=== PATIENT | male | born 1965 | race Caucasian/White ===

== ENCOUNTER 2018-03-18 13:09 | Day surgery (SDC) | payer OTHER ==
[~2018-03-18 13:09] MED LIST: Buffered Lidocaine 0.9% SYRIN* 5 ML/SYR SYRINGE INTRADERM ONE; Dexamethasone IV* 4 MG/ML 1 ML (4 MG) IV SLOW PU ONE; Dexamethasone IV* 4 MG/ML 1 ML (4 MG) ONE; Famotidine IV* 10 MG/ML 2 ML (20 mg) IV ONE; Famotidine IV* 10 MG/ML 2 ML (20 mg) ONE; Lactated Ringers 1000 ML Bag* 1,000 ML IV SCH
[2018-03-18] MEDS ORDERED: Propofol* 10 MG/ML 20 ML BTL ONE (14:37)
[2018-03-18] MEDS ORDERED: Midazolam* 1 MG/ML 2 ML VIAL (2 MG) ONE ×2 (14:37→16:25)
[2018-03-18] MEDS ORDERED: fentaNYL* 50 MCG/ML 2 ML VIAL (100 MCG VIAL) ONE ×3 (14:37→17:40)
[2018-03-18] MEDS ORDERED: Lidocaine 2% PF * 5 ML VIAL ONE (14:40)
[2018-03-18] MEDS ORDERED: Oxymetazoline 0.05% NASAL SPR* 15 ML BTL ONE (16:00)
[2018-03-18] MEDS ORDERED: Lidocaine 4% TOPICAL* 50 ML TOP.SOLN ONE (16:01)
[2018-03-18] MEDS ORDERED: hydrALAZINE IV* 20 MG/ML VIAL ONE (16:45)
[2018-03-18] MEDS ORDERED: Ondansetron INJ* 2 MG/ML VIAL ONE (16:46)
[2018-03-18] MEDS ORDERED: HYDROcodone/ACETAMIN 5-325 MG* 1 TAB PO PRN (17:10)
[2018-03-18] MEDS ORDERED: Naloxone* 0.4 MG/ML 1 ML VIAL IV PRN (17:10)
[2018-03-18] MEDS ORDERED: Acetaminophen TAB* 325 MG PO PRN (17:10)
[2018-03-18] MEDS ORDERED: DiMENhydriNATE IV* 50 MG/ML VIAL IV PUSH PRN (17:10)
[2018-03-18] MEDS ORDERED: Ibuprofen TAB* 600 MG PO PRN (17:10)
[2018-03-18] MEDS ORDERED: PROCHLORPERAZINE INJ 5 MG/ML 2 ML VIAL IV PRN (17:10)
[2018-03-18] MEDS ORDERED: hydrALAZINE IV* 20 MG/ML VIAL IV SLOW PU PRN (17:10)
[2018-03-18] MEDS: fentaNYL* 50 MCG/ML 2 ML VIAL (100 MCG VIAL) IV PRN ×2 (17:42→17:52)
[2018-03-18 18:29] VITALS: BP 132/87
--- NOTE | 2018-03-18 23:41 | OP ---
DATE OF OPERATION: 03/18/18 - SDS DATE OF : 63 SURGEON: Woo Davidson M.D. 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 OPERATIVE PROCEDURE: Microlaryngoscopy with injection of Prolaryn Gel into the left vocal cord under general endotracheal anesthesia. COMPLICATIONS: None. DISPOSITION: Good. SPECIMENS: None. INJECTIONS: 0.8 mL of Prolaryn Gel was injected. DESCRIPTION OF PROCEDURE: The patient was taken to the operating room, placed in the supine position on the operating room table. General anesthesia was induced. He was orotracheally intubated, turned, and draped for the surgery, and teeth guard was placed in the upper teeth. The laryngoscope was inserted and suspended with suspension system. Microscope was brought in. Cottonoids impregnated with oxymetazoline and 4% lidocaine was placed in his vocal cord and removed and then a Prolaryn Gel was injected in three locations, primarily posterior, a little bit less mid and a little bit less anterior into the left vocal cord just on the lateral aspect of it from medialization with a total of 0.8 mL of Prolaryn Gel. The laryngoscope was removed. The patient tolerated this well. No complications. Transferred to the recovery room in stable condition. [id number]/[facility] #: [id number] JAY
== END 2018-03-18 18:31 | disposition home or self-care (01) ==
LOC: OR 13:09
PROVIDERS: ATTEND Otolaryngology
DX: R49.0 Dysphonia (principal); J37.0 Chronic laryngitis; Z85.819 Personal history of malignant neoplasm of unspecified site of lip, oral cavity, and pharynx; K21.9 Gastro-esophageal reflux disease without esophagitis; I48.91 Unspecified atrial fibrillation; E78.5 Hyperlipidemia, unspecified; I10 Essential (primary) hypertension; E03.9 Hypothyroidism, unspecified; J45.909 Unspecified asthma, uncomplicated
CPT/HCPCS: A9270-GY; J0360; J1100; J2250; J2405; J2704; J3010; Q2026

== ENCOUNTER 2018-06-08 08:13 | Day surgery (SDC) | payer OTHER ==
[~2018-06-08 08:13] MED LIST changes: +Acetaminophen TAB* 325 MG PO ONE; -Buffered Lidocaine 0.9% SYRIN* 5 ML/SYR SYRINGE INTRADERM ONE; +Buffered Lidocaine 1% SYRIN* 1 ML/SYRINGE INTRADERM ONE; -Dexamethasone IV* 4 MG/ML 1 ML (4 MG) IV SLOW PU ONE; -Dexamethasone IV* 4 MG/ML 1 ML (4 MG) ONE; -Famotidine IV* 10 MG/ML 2 ML (20 mg) IV ONE; -Famotidine IV* 10 MG/ML 2 ML (20 mg) ONE; +Gabapentin CAP(*) 300 MG PO ONE; +Onabotulinimtoxina 100 UNITS* VIAL ONE
[2018-06-08] MEDS ORDERED: Gabapentin CAP(*) 300 MG ONE (08:56)
[2018-06-08] MEDS ORDERED: Buffered Lidocaine 1% SYRIN* 1 ML/SYRINGE INTRADERM ONE (08:56)
[2018-06-08] MEDS ORDERED: Acetaminophen TAB* 325 MG ONE (08:56)
[2018-06-08] MEDS ORDERED: Midazolam* 1 MG/ML 2 ML VIAL (2 MG) ONE ×2 (09:32→10:10)
[2018-06-08] MEDS ORDERED: fentaNYL* 50 MCG/ML 2 ML VIAL (100 MCG VIAL) ONE (09:32)
[2018-06-08] MEDS ORDERED: Triamcinolone Acetonide* 40 MG/ML 1 ML VIAL ONE ×2 (09:44→10:13)
[2018-06-08] MEDS ORDERED: Famotidine IV* 10 MG/ML 2 ML (20 mg) ONE (10:00)
[2018-06-08] MEDS ORDERED: Succinylcholine* 20 MG/ML 10 ML VIAL ONE (10:13)
[2018-06-08] MEDS ORDERED: Propofol* 10 MG/ML 20 ML BTL ONE (10:13)
[2018-06-08] MEDS ORDERED: Dexamethasone IV* 4 MG/ML 1 ML (4 MG) ONE (10:13)
[2018-06-08] MEDS ORDERED: Ondansetron INJ* 2 MG/ML VIAL ONE (10:13)
[2018-06-08] MEDS ORDERED: Lidocaine 4% TOPICAL* 50 ML TOP.SOLN ONE (10:15)
[2018-06-08] MEDS ORDERED: Cisatracurium* 2 MG/ML MDV 5 ML ONE (10:15)
[2018-06-08] MEDS ORDERED: EPHEDrine (Pressors)* 50 MG/ML VIAL ONE (10:23)
[2018-06-08] MEDS ORDERED: Esmolol* 10 MG/ML 10 ML (100 mg) ONE (10:29)
[2018-06-08] MEDS ORDERED: HYDROcodone/ACETAMIN 5-325 MG* 1 TAB PO PRN ×2 (10:31)
[2018-06-08] MEDS ORDERED: Naloxone* 0.4 MG/ML 1 ML VIAL IV PRN (10:31)
[2018-06-08] MEDS ORDERED: Ondansetron INJ* 2 MG/ML VIAL IV PRN (10:31)
[2018-06-08] MEDS ORDERED: fentaNYL* 50 MCG/ML 2 ML VIAL (100 MCG VIAL) IV PRN (10:31)
[2018-06-08] MEDS ORDERED: diPHENhydraMINE IV* 50 MG/ML 1 ml VIAL (BENADRYL) IV PRN (10:31)
[2018-06-08] MEDS ORDERED: DiMENhydriNATE IV* 50 MG/ML VIAL IV PUSH PRN (10:31)
[2018-06-08] MEDS ORDERED: PROCHLORPERAZINE INJ 5 MG/ML 2 ML VIAL IV PRN (10:31)
[2018-06-08] MEDS ORDERED: Levalbuterol 0.63MG/3ML NEB* UNIT OF USE INH PRN (10:31)
[2018-06-08] MEDS ORDERED: Neostigmine Methylsulfate* 1 MG/ML 10 ML VIAL (1 mg/ml) ONE (10:41)
[2018-06-08] MEDS ORDERED: Glycopyrrolate IV* 0.2 MG/ML 1 ML VIAL ONE (10:41)
[2018-06-08 12:13] VITALS: BP 126/85
--- NOTE | 2018-06-08 13:52 | OP ---
OPERATIVE REPORT: DATE OF OPERATION: 06/08/18 - SDS DATE OF : 63 SURGEON: Woo Davidson MD ANESTHESIOLOGIST: Cristóbal West MD ANESTHESIA: General endotracheal anesthesia. PRE-OP DIAGNOSIS: Chronic dysphonia with chronic laryngitis. POST-OP DIAGNOSIS: Chronic dysphonia with chronic laryngitis. OPERATIVE PROCEDURE: Microlaryngoscopy with vocal cord injection with Botox followed by Kenalog under general endotracheal anesthesia. COMPLICATIONS: None. DISPOSITION: Good. SPECIMEN: None. BLOOD LOSS: None. DESCRIPTION OF PROCEDURE: Patient was taken to the operating room, placed in a supine position on the operating table. General anesthesia was induced and he was orotracheally intubated, turned and draped for the surgery. A tooth guard was placed in his upper teeth. The laryngoscope was inserted and suspended from the suspension system and the microscope was brought in. I initially started with the Botox injection preloading a laryngeal injection needle, a transoral needle with the Botox and on each side, I injected 2.5 units. I inserted the needle into the vocal cord under direct visualization using the microscope, injected, put the second needle on and injected the other side. I then preloaded the injection needle and injected 0.5 mL of Kenalog 40 mg into each vocal cord bilaterally using the same technique. Cottonoids impregnated with oxymetazoline and 4% lidocaine was placed to anesthetize the vocal cords. The laryngoscope and tooth guard were released and removed. The patient tolerated this well. No complications. Transferred to the recovery room in stable condition. [id number]/[facility] #: [id number] MTDD
== END 2018-06-08 12:15 | disposition home or self-care (01) ==
LOC: OR 08:13
PROVIDERS: ATTEND Otolaryngology
DX: J38.5 Laryngeal spasm (principal); J37.0 Chronic laryngitis; R49.0 Dysphonia; I10 Essential (primary) hypertension; I34.0 Nonrheumatic mitral (valve) insufficiency; I48.91 Unspecified atrial fibrillation; J45.909 Unspecified asthma, uncomplicated; E03.9 Hypothyroidism, unspecified; K21.9 Gastro-esophageal reflux disease without esophagitis
CPT/HCPCS: A9270-GY; J0330; J0585; J1100; J2250; J2405; J2704; J2710; J3010; J3301

== ENCOUNTER 2018-09-30 07:36 | Day surgery (SDC) | payer OTHER ==
[~2018-09-30 07:36] MED LIST changes: -Acetaminophen TAB* 325 MG PO ONE; +Dexamethasone IV* 4 MG/ML 1 ML (4 MG) IV SLOW PU ONE; +Famotidine IV* 10 MG/ML 2 ML (20 mg) IV ONE; -Gabapentin CAP(*) 300 MG PO ONE; -Onabotulinimtoxina 100 UNITS* VIAL ONE
[2018-09-30] MEDS ORDERED: Famotidine IV* 10 MG/ML 2 ML (20 mg) ONE (07:49)
[2018-09-30] MEDS ORDERED: Dexamethasone IV* 4 MG/ML 1 ML (4 MG) ONE (07:49)
[2018-09-30] MEDS ORDERED: EPINEPHRINE 1 MG/ML 1 ML VIAL ONE (10:44)
[2018-09-30] MEDS ORDERED: Lidocaine 4% TOPICAL* 50 ML TOP.SOLN ONE ×2 (10:44→13:30)
[2018-09-30] MEDS ORDERED: Oxymetazoline 0.05% NASAL SPR* 15 ML BTL ONE (10:44)
[2018-09-30] MEDS ORDERED: Sugammadex * 200 MG/2 ML VIAL IV PUSH ONE (10:45)
[2018-09-30] MEDS ORDERED: Rocuronium* 10 MG/ML VIAL ONE (10:45)
[2018-09-30] MEDS ORDERED: Methylene Blue 0.5 %* 50 MG/10 ML AMP IV ONE (10:48)
[2018-09-30] MEDS ORDERED: fentaNYL* 50 MCG/ML 2 ML VIAL (100 MCG VIAL) ONE ×2 (10:55→12:10)
[2018-09-30] MEDS ORDERED: Midazolam* 1 MG/ML 2 ML VIAL (2 MG) ONE (10:56)
[2018-09-30] MEDS ORDERED: Ondansetron INJ* 2 MG/ML VIAL ONE (11:35)
[2018-09-30] MEDS ORDERED: Neostigmine Methylsulfate* 3 MG/3 ML SYRINGE ONE (11:36)
[2018-09-30] MEDS ORDERED: Glycopyrrolate IV* 0.2 MG/ML 1 ML VIAL ONE (11:36)
[2018-09-30] MEDS: fentaNYL* 50 MCG/ML 2 ML VIAL (100 MCG VIAL) IV PRN ×2 (11:55→12:38)
[2018-09-30] MEDS ORDERED: DiMENhydriNATE IV* 50 MG/ML VIAL IV PUSH PRN (12:07)
[2018-09-30] MEDS ORDERED: HYDROmorphone INJ1* 1 MG/ML SYRINGE IV PRN (12:07)
[2018-09-30] MEDS ORDERED: Naloxone* 0.4 MG/ML 1 ML VIAL IV PRN (12:07)
[2018-09-30] MEDS ORDERED: HYDROmorphone INJ1* 1 MG/ML SYRINGE ONE (12:10)
[2018-09-30] MEDS ORDERED: Lorazepam PYXIS KEY ONE (12:19)
[2018-09-30] MEDS ORDERED: LORazepam INJ* 2 MG/ML 1 ML VIAL ONE (12:20)
--- NOTE | 2018-09-30 13:51 | OP ---
DATE OF OPERATION: 09/30/18 - SDS DATE OF : 63 SURGEON: Woo Davidson MD. 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 OPERATIVE PROCEDURE: Microlaryngoscopy with CO2 laser ablation, some vocal cord leukoplakia, and then bilateral DONTE Voice implant injection under general endotracheal anesthesia. COMPLICATIONS: None. DISPOSITION: Good. SPECIMEN: None. BLOOD LOSS: None. DESCRIPTION OF PROCEDURE: The patient was taken to the operating room, placed in the supine position on the operating room table, general anesthesia was induced, and he was orotracheally intubated with a laser safe tube. Wet eye pads and wraps were used during the procedure around his face and oxygen was turned down low using laser safe protocol. He was turned and draped for the surgery. A tooth guard was placed on his upper teeth and the laryngoscope was inserted and suspended from the suspension system. Microscope was brought in. He had diffuse friable leukoplakia of his vocal cords bilaterally. Using the CO2 laser at a setting of 2 with the OmniGuide fiber, noncontact and defocused, I ablated these areas to get superficial blanching. Once this was done, DONTE Gel implant was injected bilaterally, 0.3 mL bilaterally, into the mid posterior lateral vocal cords to give just a little bit of medialization. The Ted-Fernandez mouth gag was released and removed. The patient tolerated the procedure well, no complications, transferred to the recovery room in stable condition. [id number]/[facility] #: [id number] [facility]
[2018-09-30] MEDS ORDERED: Labetalol IV* 5 MG/ML 20 ML VIAL ONE (14:16)
[2018-09-30 14:35] VITALS: BP 140/97
== END 2018-09-30 15:00 | disposition home or self-care (01) ==
LOC: OR 07:36
PROVIDERS: ATTEND Otolaryngology
DX: J38.3 Other diseases of vocal cords (principal); J37.0 Chronic laryngitis; R49.8 Other voice and resonance disorders; I10 Essential (primary) hypertension; J45.909 Unspecified asthma, uncomplicated; K21.9 Gastro-esophageal reflux disease without esophagitis; E03.9 Hypothyroidism, unspecified; Z79.01 Long term (current) use of anticoagulants; Z85.818 Personal history of malignant neoplasm of other sites of lip, oral cavity, and pharynx; Z86.73 Personal history of transient ischemic attack (TIA), and cerebral infarction without residual deficits
CPT/HCPCS: A9270-GY; C1878; J1100; J1170; J2060; J2250; J2405; J2710; J3010

== ENCOUNTER 2019-03-18 07:04 | Emergency (ER) | payer OTHER ==
--- OUTSIDE RECORDS SUMMARY | 2019-03-18 07:13 | XMS REPORT | Continuity of Care Document ---
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 [phone] Problems Active Problems Provider Date Benign neoplasm of colon Luis Vieira DO Onset: 06/03/2010 Peptic reflux disease Luis Vieira DO Onset: 06/03/2010 Dysphagia Luis Vieira DO Onset: 06/03/2010 Gastroesophageal reflux disease Luis Vieira DO Onset: 11/04/2015 Social History Type Date Description Comments Sex Unknown ETOH Use Occasionally consumes beer ETOH Use Occasionally consumes liquor ETOH Use Occasionally consumes wine Tobacco Use Start: Unknown Patient has never smoked Recreational Drug Use Denies Drug Use Smoking Status Reviewed: 02/21/19 Patient has never smoked Allergies, Adverse Reactions, Alerts Description No Known Drug Allergies Medications Active Medications SIG Qnty Indications Ordering Date Provider Pantoprazole Sodium 1 by mouth bid 60tabs Luis Vieira DO 02/21/[address] Carolinaotidtelma 1 by mouth QHS as 30tabs Luis Vieira DO 02/21/2019 40mg Tablets needed for heartburn Levothyroxine Sodium 1 by mouth every Cristóbal Chowdhury, day 150mcg Tablets Montelukast Sodium 1 by mouth every Cristóbal Chowdhury, 10mg day Tablets Metoprolol Succinate 1 by mouth every Unknown ER day 50mg Tablets ER 24HR Testosterone Cypionate as Directed Unknown 200mg/ml Solution Pradaxa 1 by mouth twice Unknown 150mg Capsules a day Atorvastatin Calcium 1 by mouth every 90tabs Jonny Cabral, 40mg day MD Tablets Loratadine 1 by mouth every 30tabs Unknown 10mg Tablets day History Medications Lansoprazole take 1 capsule by 90caps Luis Vieira DO 10/13/2018 - 30mg Capsules mouth once daily 02/12/2019 DR Caal Description No Information Available Vital Signs Date Vital Result Comment 02/21/2019 8:34am BP Systolic 127 mmHg BP Diastolic 86 mmHg Heart Rate 70 /min Height 74 inches 6'2" Weight 210.00 lb BMI (Body Mass Index) 27.0 kg/m2 Body Temperature 97.1 F 02/22/2018 10:43am BP Systolic 91 mmHg BP Diastolic 61 mmHg Heart Rate 93 /min Height 74 inches 6'2" Weight 223.00 lb BMI (Body Mass Index) 28.6 kg/m2 Body Temperature 96.5 F Results Description No Information Available Procedures Description No Information Available Medical Devices Description No Information Available Encounters Type Date Location Provider Dx Diagnosis Office Visit 02/21/2019 [place] [address] Office Luis Vieira DO K21.9 Gastro- esophageal 8:15a reflux disease without esophagitis R13.10 Dysphagia, unspecified Assessments Date Code Description Provider 02/21/2019 K21.9 Gastro-esophageal reflux disease without Luis Vieira DO esophagitis 02/21/2019 R13.10 Dysphagia, unspecified Luis Vieira DO Plan of Treatment Future Appointment(s):09/04/2019 1:15 pm - Luis Vieira DO at [place] [address] Office Functional Status Description No Information Available Mental Status Description No Information Available Referrals Description No Information Available
--- OUTSIDE RECORDS SUMMARY | 2019-03-18 07:13 | XMS REPORT | Summary of Care ---
:1965 Author Organization [facility] Address [address] [place] [address] Care Team Providers Name Role Phone Cristóbal Chowdhury MD Primary Care Provider Reason for Visit Reason Comments Follow-up Encounter Details Date Type Department Care Team Description 02/14/2019 Office Visit Boaz Johnson Chronic hoarseness ( Primary Dx); Otolaryngology MD Yves Lesion of true vocal cord; [facility] at [address] Chronic laryngitis [place], [place] [address] [address] [address] [phone] [place] [id number] Allergies No Known Allergiesdocumented as of this encounter (statuses as of 02/14/2019) Medications Medication Sig Dispensed Refills Start Date End Date Status montelukast Take 10 mg by 0 05/24/2014 Active (SINGULAIR) 10 MG mouth nightly tablet levothyroxine Take 150 mcg by 0 05/30/2014 Active (SYNTHROID, mouth daily LEVOTHROID) 150 MCG tablet atorvastatin (LIPITOR) Take 1 tablet 30 tablet 5 08/02/2016 Active 40 MG tablet by mouth daily testosterone cypionate Inject 200 mg 0 Active (DEPO-TESTOSTERONE) into the muscle 200 MG/ML injection every 21 (twenty-one) days PRADAXA 150 MG CAPS take 1 capsule 0 08/11/2017 Active by mouth twice a day loratadine (CLARITIN) 0 08/09/2017 Active 10 MG tablet ranitidine (ZANTAC) 0 08/18/2017 Active 150 MG tablet omeprazole (PRILOSEC) 0 08/09/2017 Active 40 MG capsule metoprolol (LOPRESSOR) Take 50 mg by 0 11/24/2018 Active 50 MG tablet mouth Two Times Daily amlodipine (NORVASC) 5 0 08/03/2018 Active MG tablet pantoprazole Take 1 tablet 180 tablet 3 12/08/2018 12/07/2019 Active (PROTONIX) 40 MG by mouth Two tablet times daily before meals vardenafil (LEVITRA) Take 10 mg by 0 Active 10 MG tablet mouth predniSONE (DELTASONE) Take by mouth 0 01/04/2019 Active 5 MG tablet daily documented as of this encounter (statuses as of 02/14/2019) Active Problems Problem Noted Date Cervical stenosis of spinal canal 09/06/2017 Neural foraminal stenosis of cervical spine 09/06/2017 DDD (degenerative disc disease), cervical 09/06/2017 Cervical radiculopathy 09/06/2017 Cerebrovascular accident (CVA) due to embolism of left middle cerebral 2016 artery Carotid occlusion, bilateral 09/29/2016 Acute ischemic stroke 07/31/2016 Hypothyroidism 07/31/2016 Atrial fibrillation 07/31/2016 GERD (gastroesophageal reflux disease) 07/31/2016 bilateral ICAO (internal carotid artery occlusion) 07/31/2016 Overview: Occlusion vs agenesis Cervical spondylosis 05/31/2014 documented as of this encounter (statuses as of 02/14/2019) Social History Tobacco Use Types Packs/Day Years Used Date Never Smoker Smokeless Tobacco: Never Used Alcohol Use Drinks/Week oz/Week Comments Yes less than 10/week Sex Assigned at Date Recorded Not on file Job Start Date Occupation Industry Not on file Not on file Not on file Travel History Travel Start Travel End No recent travel history available. 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 ACDF level C4-7 with neuro-monitoring done. Feels singing voice was affected. Never called here forf/u On any blood thinners: yes. pradaxa On reflux medications: Yes, PPI Smoking no 12/01: here for voice. Was a patient of Dr Davidson: 2009 MDL KTP of leukoplakia; 2012: [employer] [place] 2 laser of polyp. Narrow scope used. Has had problems with singing voice since (last year). Has seen Dr Davidson for this. Has tried vocal cord injections: GEL left Gel then kenalog/BOTOX bilateral, then DONTE bilateral On PO steroids voice better. Was on prednisone 50 mg/day. Then tapered. 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 Goes to [place]. In ear monitors. 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 In 04/03 will go to [place]. 3- 4 days on, 3-4 off. Will be 4th season PPI in AM R qHS Mylanta/tums qHS Sees GI. EGD last 5 years. Try diflucan, stop inhaled steroid. Get old strobes. Switch PPI to BID and continue R 01/12/19: better but not stamina it once had. Last time 100%: over 2 years ago except when on prednisone 04/02. Last "50%", today 60%: better range, inflection , clarity. Taking 5 mg prednisone qD for 5 days without help. Did not get strobes TODAY: no strobes or videos. Off steroids. Feels voice is no good. Did not get tour in 04/03. Can't sing "Happy Birthday" and depressing The patients PMH, PSH, ROS, ALL, Meds, SH, FH are all updated and noted in the EMR. Has had 2 MDL excision lesions (benign-last many years ago). 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 Face inspected and no deformity, lesions noted. Conjunctiva are clear. Extraocular movements are intact. Cranial nerves tested and intact. Neck is supple, no adenopathy, no thyroid masses, no salivary gland enlargement. Good mobility side to side Intraoral exam, no lesions of the tongue, palate, floor of mouth, buccal surface. Sinuses non tender. Anterior nose, septum intact, no perforations, no obvious intranasal polyps. Ear canals are patent. TMs intact, no fluid. TMJs negative. It was decided today that based on sxs, a stroboscopic exam is needed today to evaluate the vocal folds: Stroboscopic exam was performed using a Olympus stroboscopy unit and iMAC monitor with flexible (attempted rigid but +GAG) scope. Amplitude of vibration , degree of vibration of each vocal fold, vocalfold edges and degree/type of glottic closure was assessed: ABD/ADD: intact. Right FVC thinned and VC shortened and ?higher than left Closure: not complete Right edge: mild irregular, whitish mid thickening (CAHA) Left edge: mild irregular Vibration R (reduced %) Vibration L (100 %) + mucus +inflamation NOT MUCH CHANGE. C/w 2018: much worse closure, right vibration A/P: This is a 54 yo patient with past XRT and mucus, LPR, stiff RVC and irregular closure. RTC 4 month Consider MDL, ?possible removal of CAHA verus waiting it out. May need left filler documented in this encounter Plan of Treatment Date Type Specialty Care Team Description 06/20/2019 Office Visit Otolaryngology Boaz Durant MD [address] [place] [address] [phone] Health Maintenance Due Date Last Done Comments MMR Vaccines (1 of 1 - Standard [birth year]10/1965 series) DTaP,Tdap,and Td Vaccines (1 - 01/10/1971 Tdap) HIV Screening 01/10/1977 Colon Cancer Screening 10 yrs 01/10/2014 Influenza Vaccine 12/13/2018 Pneumococcal Vaccine: 65+ Years (1 01/10/2029 of 2 - PCV13) Hepatitis C Screening (B. Completed 08/01/[id number]) HIB Vaccines Aged Out No longer eligible based on patient's age to complete this topic Hepatitis A Vaccines Aged Out No longer eligible based on patient's age to complete this topic Hepatitis B Vaccines Aged Out No longer eligible based on patient's age to complete this topic IPV Vaccines Aged Out No longer eligible based on patient's age to complete this topic Pneumococcal Vaccine: Pediatrics Aged Out No longer eligible based on (0 to 5 Years) and At-Risk patient's age to complete Patients (6 to 64 Years) this topic Varicella Vaccines Aged Out No longer eligible based on patient's age to complete this topic documented as of this encounter Results Not on filedocumented in this encounter Visit Diagnoses Diagnosis Chronic hoarseness - Primary Dysphonia Lesion of true vocal cord Other diseases of vocal cords Chronic laryngitis documented in this encounter
--- OUTSIDE RECORDS SUMMARY | 2019-03-18 07:13 | XMS REPORT | Continuity of Care Document ---
:1965 External Reference #:[id number] Author Name Cristóbal Chowdhury MD Address [address] [address] Care Team Providers Name Role Phone Cristóbal Chowdhury MD - Family Medicine Care Team Information Studio Grip Jonny Cabral MD - Cardiovascular Care Team Information [facility] Disease Luis Jacobsen MD - Pain Medicine Care Team Information Studio Grip Luis Vieira MD - Gastroenterology Care Team Information Studio Grip Bossman Grant MD - Neurological Surgery Care Team Information Studio Grip [phone] Braden Munoz MD - Overnight Cashier Care Team Information Studio Grip Problems Active Problems Provider Date Hypothyroidism Lashanda Johnson MD Onset: 10/03/2007 Acute bronchitis Lashanda Johnson MD Onset: 10/03/2007 Atrial fibrillation Jonny Cabral MD Onset: 02/11/2011 Palpitations Jonny Cabral MD Onset: 02/11/2011 Mitral valve disorder Jonny Cabral MD Onset: 02/25/2011 Electrocardiogram abnormal Jonny Cabral MD Onset: 07/21/2011 Allergic asthma without status asthmaticus Jonny Cabral MD Onset: 2012 Antiplatelet agent Jonny Cabral MD Onset: 03/11/2015 Paroxysmal atrial fibrillation Jonny Cabral MD Onset: 09/19/2015 Edema Jonny Cabral MD Onset: 03/05/2016 Dizziness and giddiness Jonny Cabral MD Onset: 07/04/2016 Cerebral artery occlusion Jonny Cabral MD Onset: 02/17/2017 Long-term current use of anticoagulant Jonny Cabral MD Onset: 02/17/2017 Chest pain Jonny Cabral MD Onset: 02/17/2017 Disorder of pericardium Jonny Cabral MD Onset: 02/17/2017 Essential hypertension Jonny Cabral MD Onset: 08/27/2017 Pure hypercholesterolemia Jonny Cabral MD Onset: 09/29/2017 Orthostatic hypotension Jonny Cabral MD Onset: 09/29/2017 Low blood pressure Jonny Cabral MD Onset: 12/15/2017 Hypertensive heart disease without heart failure Jonny Cabral MD Onset: 05/2017 Preoperative cardiovascular examination Jonny Cabral MD Onset: 06/02/2018 Testicular hypofunction Jonny Cabral MD Onset: 06/02/2018 Unspecified sexual dysfunction not due to a Jonny Cabral MD Onset: 2018 substance or known physiological condition Drug-induced hypotension Jonny Cabral MD Onset: 09/02/2018 Uncomplicated moderate persistent asthma Cristóbal Chowdhury MD Onset: 09/27/2018 Social History Type Date Description Comments Sex Unknown Tobacco Use Start: Unknown Never Smoked Cigarettes ETOH Use Occasionally consumes alcohol Recreational Drug Use Never Used Drugs Tobacco Use Start: Unknown Patient has never smoked Smoking Status Reviewed: 01/04/19 Patient has never smoked Allergies, Adverse Reactions, Alerts Description No Known Drug Allergies Medications Active Medications SIG Qnty Indications Ordering Date Provider Prednisone 1 PO qd 90tabs R49.0 Cristóbal Chowdhury, 01/04/2019 5mg MD Tablets Amlodipine Besylate 1 by mouth every day 30tabs Selvin, 09/02/2018 MD Alfie 2.5mg Tablets Prednisone 5 tablets everyday 25tabs J20.9 [place], 05/23/2018 10mg in the in the Sammie, [employer] Tablets morning x 5 days Ipratropium 1 vial inhaled via 360ml [place], 05/23/2018 Alpine/Albuterol nebulizer every q4-6 Sammie, [employer] Sulfate hours as needed for shortness of 0.5-2.5(3)mg/3ML breath/wheezing Solution Metoprolol Tartrate take one tab by 60tabs I10 Selvin, 05/23/2018 mouth twice a day MD Alfie 50mg Tablets Testosterone inject 3ml 12ml E29.1 Cristóbal Chowdhury, 08/20/2017 Cypionate intramuscular every MD 200mg/ml 4 weeks. code f Solution Albuterol Sulfate 1 dose by via 75units J45.20 Cristóbal Chowdhury, 06/07/2017 nebulizer every 4-6 1.25mg/3ML Nebulizer hours as needed for sob or wheezing Omeprazole 1 by mouth every day 90caps [place], 02/26/2017 40mg in the evening RACHEAL Cochran Capsules DR Loratadine 1 by mouth every day J30.9 Unknown 02/09/2017 10mg Tablets Montelukast Sodium one by mouth every 30tabs J45.30 [place], 01/15/2017 day at bedtime. new RACHEAL Cochran 10mg Tablets insurance started today Levothyroxine Sodium 1 by mouth every 90tabs E03.9 Cristóbal Chowdhury, 2016 day. 150mcg Tablets Atorvastatin Calcium 1 by mouth every day 90tabs E78.00 Jonny Cabral, 40mg Tablets Pradaxa take one capsule by 60caps I48.0 Cristóbal Chowdhury, 08/01/2016 150mg mouth twice a day MD Capsules Sumatriptan 1 by mouth stat for 60tabs G43.109 [place], 07/28/2016 Succinate migraine symptoms RACHEAL Cochran 100mg may repeat after 2 Tablets hours. please note change in dose. Approve through 07/2017. Levitra 1/2-1 by mouth as 30tabs Cristóbal Chowdhury, 11/12/2015 20mg Tablets needed take 15 MD minutes prior to sexual activity Antacid Plus 30ml po qhs Unknown Anti-Gas Relief Maximum Strength [id number] Suspension Ranitidine HCL 1 by mouth qhs K21.9 Unknown 150mg Capsules Tylenol 1 q6 hours as needed Unknown 325mg pain Capsules Medications Administered in Office Medication SIG Qnty Indications Ordering Provider Date Albuterol Up To 2.5mg & Cristóbal Chowdhury MD 12/13/2017 Ipatropium Alpine Up To 0.5mg Non-Compd Injection Depo Medrol 80 MG Cristóbal Chowdhury MD 08/20/2017 Injection Depo Medrol 40 MG Cristóbal Chowdhury MD 08/20/2017 Injection Injection, testosterone Nurse Schedule Loc 8 05/04/2016 cypionate, 1mg Injection PPD Cristóbal Chowdhury MD 09/09/2012 Injection Immunizations CPT Code Status Date Vaccine Lot # [id number] Given 11/24/2018 Tdap (Adacel) Ages 7 And Above Only [id number] 92305 Given 11/24/2018 Influenza Vac, Quadrivalent, Split, 0.5mL Dosage, [id number] Im Use 35451 Given 11/25/2017 Influenza Vac, Quadrivalent, Split, 0.5mL Dosage, [id number] Im Use 19461 Given 10/28/2016 Influenza Vac, Quadrivalent, Split, 0.5mL Dosage, [id number] Im Use 04545 Given 11/12/2015 Influenza Vac, Quadrivalent, Split, 0.5mL Dosage, [id number] Im Use 16157 Given 12/19/2014 Influenza Vac, Quadrivalent, Split, 0.5mL Dosage, [id number] Im Use Q2038 Given 02/19/2014 Fluzone Trivalent Immunization [id number] Q2038 Given 12/22/2011 Fluzone Trivalent Immunization [id number] Q2038 Given 01/12/2011 Fluzone Trivalent Immunization [id number] 64070 Given 01/08/2010 Afluria Or Fluvirin Flu Vac Intramuscular [id number] 76969 Given 01/15/2009 Influenza Virus Vaccine Pandemic Formulation - [id number] 38267 Given 01/15/2009 Administration Swine Flu Vaccine [id number] 04325 Given 12/21/2008 Afluria Or Fluvirin Flu Vac Intramuscular [id number] 28128 Given 09/10/2008 Hepatitis B Vaccine Adult Dosage 55194 Given 09/10/2008 Hepatitis B Vaccine Adult Dosage 01739 Given 06/23/2008 Hepatitis B Vaccine Adult Dosage 44327 Given 06/23/2008 Tdap (Adacel) Ages 7 And Above Only 72981 Given 01/02/2008 Afluria Or Fluvirin Flu Vac Intramuscular [id number] Vital Signs Date Vital Result Comment 01/04/2019 4:02pm Body Temperature 97.5 F Weight 208.00 lb Heart Rate 96 /min BP Systolic 176 mmHg gets white coat BP Diastolic 110 mmHg gets white coat BP Systolic Recheck 128 mmHg BP Diastolic Recheck 68 mmHg Respiratory Rate 16 /min Height 72 inches 6'0" O2 % BldC Oximetry 95 % BMI (Body Mass Index) 28.2 kg/m2 Urine Dipstick - Blood neg Urine Dipstick - Protein neg ketones pos Urine Dipstick - Glucose neg Urine Dipstick - Leukocytes neg 11/24/2018 2:12pm Body Temperature 97.8 F Weight 218.00 lb Heart Rate 78 /min BP Systolic 142 mmHg BP Diastolic 80 mmHg Respiratory Rate 17 /min Height 73 inches 6'1" O2 % BldC Oximetry 98 % BMI (Body Mass Index) 28.8 kg/m2 Results Test Acquired Date Facility Test Result H/L Range Note Testosterone,F 02/01/2019 [facility] Testosterone Total 109 ng/dL Low 285- 950 ree & Adult Male Total-Male Sex Hormone Binding Globulin 24.2 nmol/L 13.3-89.5 Testosterone Free Adult Male 24 pg/mL Low 50-247 Testosterone Percent Free 2.2 % 1.8-3.2 Comprehensive Met Panel-[facility] 01/04/2019 [facility] Sodium 140 mmol/L 135- 146 1 Potassium 4.2 mmol/L 3.5-5.2 Chloride# 102 mmol/L 97-110 2 Carbon Dioxide 32 mmol/L 24-34 Calcium 9.0 mg/dL 8.5-10.5 3 Glucose 93 mg/dL 70-105 BUN 14 mg/dL 6-26 Creatinine 1.0 mg/dL 0.5-1.4 Total Protein 5.7 g/dL Low 6.0-8.0 Albumin 4.0 g/dL 3.6-4.9 Globulin 1.7 g/dL Low 2.0-3.5 A/G Ratio 2.4 Ratio High 1.0-2.2 Total Bilirubin 0.7 mg/dL 0.1-1.3 Alkaline Phosphatase 38 U/L 24-140 Alt 31 U/L 3-42 Ast 23 U/L 8-42 Anion Gap 6 mmol/L 5-15 4 Female Egfr 60 Low >60 5 Male Egfr 80 >60 6 CBC with Auto Diff-fcmg 01/04/2019 [facility] WBC 6.8 K/uL 4.1-11.0 RBC 5.18 M/uL 4.60-6.10 Hemoglobin 16.4 gm/dL 13.5-18.0 Hematocrit 48.4 % 41.0-53.0 MCV 93.4 fL 80.0-97.0 MCH 31.6 pg 27.0-32.0 MCHC 33.9 g/dL 32.0-36.0 RDW 13.2 % 11.5-14.5 PLT Count 233 K/ul 140-400 MPV 8.3 FL 7.1-10.7 Neutrophil 67.4 % 35.0-75.0 Lymphocyte 19.3 % 16.0-52.0 Monocyte 11.0 % High 2.0-10.0 Eosinophil 1.8 % 0.0-5.0 Basophil 0.5 % 0.0-4.0 Abs Neutrophils 4.6 K/uL 2.1-8.0 Abs Lymphocytes 1.3 K/uL 0.8-5.5 Abs Monocytes 0.7 K/uL 0.1-1.0 Abs Eosinophils 0.1 K/uL 0.0-0.5 Abs Basophils 0.0 K/uL 0.0-0.3 Laboratory test finding 01/04/2019 [facility] TSH 1.78 uIU/mL 0.35-4.94 Lipid 01/04/2019 [facility] Cholesterol 120 mg/dL 50-199 Triglycerides 87 mg/dL 30-200 HDL 32 mg/dL 29-71 7 Chol/ HDL Ratio 3.8 ratio Low 4.0-6.7 VLDL 17 mg/dL 2-29 LDL (Calc) 71 mg/dL 20-99 8 Laboratory test finding 01/04/2019 [facility] PSA 1.390 ng/mL 0.000-4.000 9 Total Testosterone Adult Male >1600 ng/dL High 285-950 CBC with Auto Diff-fcmg 09/27/2018 [facility] WBC 7.1 K/uL 4.1-11.0 RBC 5.76 M/uL 4.60-6.10 Hemoglobin 17.1 gm/dL 13.5-18.0 Hematocrit 50.9 % 41.0-53.0 MCV 88.3 fL 80.0-97.0 MCH 29.6 pg 27.0-32.0 MCHC 33.5 g/dL 32.0-36.0 RDW 13.9 % 11.5-14.5 PLT Count 204 K/ul 140-400 MPV 8.5 FL 7.1-10.7 Neutrophil 71.6 % 35.0-75.0 Lymphocyte 16.2 % 16.0-52.0 Monocyte 9.6 % 2.0-10.0 Eosinophil 2.0 % 0.0-5.0 Basophil 0.6 % 0.0-4.0 Abs Neutrophils 5.1 K/uL 2.1-8.0 Abs Lymphocytes 1.2 K/uL 0.8-5.5 Abs Monocytes 0.7 K/uL 0.1-1.0 Abs Eosinophils 0.1 K/uL 0.0-0.5 Abs Basophils 0.0 K/uL 0.0-0.3 Basic (BMP) 09/27/2018 [facility] Sodium 141 mmol/L 135-146 10 Potassium 4.0 mmol/L 3.5-5.2 Chloride# 103 mmol/L 97-110 11 Carbon Dioxide 27 mmol/L 24-34 Glucose 83 mg/dL 70-105 BUN 21 mg/dL 6- Creatinine 1.2 mg/dL 0.5-1.4 Calcium 9.5 mg/dL 8.5-10.5 12 Female Egfr 51 Low >60 13 Male Egfr 68 >60 14 Anion Gap 11 mmol/L 5-15 15 Laboratory test finding 09/27/2018 [facility] TSH 2.01 uIU/mL 0.35-4.94 1 Updated reference range on new analyzer 2 Updated reference range on new analyzer 3 Updated reference range 07-13-2018 4 Updated Reference Range 5 Concerning GFR Guidelines for Americans: Normal function or mild renal disease, if clinically at risk: >/= 60 mL/min Moderately decreased: 30-59 Severely decreased: 15-29 Renal failure: <15 There is reduced accuracy above 60ml/min/1.73 m squared, but the numeric value may be clinically useful in the near 60 range 6 Concerning GFR Guidelines: Normal function or mild renal disease, if clinically at risk: >/= 60 mL/min Moderately decreased: 30-59 Severely decreased: 15-29 Renal failure: <15 There is reduced accuracy above 60ml/min/1.73 m squared, but the numeric value may be clinically useful in the near 60 range Glomerular Filtration Rate (GFR) is estimated based on the CKD-EPI equation, which assumes a steady state for creatinine as recommended by the National Kidney Disease Education Program in conjunction with the National Institutes of Health and the National Kidney Foundation. Clinical conditions in which it may be necessary to measure GFR by using clearance methods include extremes of age and body size, severe malnutrition or obesity, diseases of skeletal muscle, paraplegia or quadriplegia, vegetarian diet, rapidly changing kidney function, and calculation of the dose of potentially toxic drugs that are excreted by the kidneys. 7 Per NCEP ATP III Guidelines: Results lower than 40 mg/dL are suggestive of increased risk for coronary artery disease. Results > or = to 60 mg/dL are considered a negative risk factor. 8 Per NCEP ATP III Guidelines: Normal Population <130 Patients with medical conditions: CHD/DM Optimal: <100 Borderline high: 130-159 High: 160-189 Very high: >189 9 Beginning 05/10/06 PSA values assayed at [facility] uses chemiluminescence methodology manufactured by [employer] for use on the DXI analyzer. Values obtained with different assay methods or kits can not be used interchangeably. Serum PSA measurement is not an absolute test for malignancy. The PSA value should be used in conjunction with information available from clinical evaluation and other diagnostic procedures. 10 Updated reference range on new analyzer 11 Updated reference range on new analyzer 12 Updated reference range 07-13-2018 13 Concerning GFR Guidelines for Americans: Normal function or mild renal disease, if clinically at risk: >/= 60 mL/min Moderately decreased: 30-59 Severely decreased: 15-29 Renal failure: <15 There is reduced accuracy above 60ml/min/1.73 m squared, but the numeric value may be clinically useful in the near 60 range 14 Concerning GFR Guidelines: Normal function or mild renal disease, if clinically at risk: >/= 60 mL/min Moderately decreased: 30-59 Severely decreased: 15-29 Renal failure: <15 There is reduced accuracy above 60ml/min/1.73 m squared, but the numeric value may be clinically useful in the near 60 range Glomerular Filtration Rate (GFR) is estimated based on the CKD-EPI equation, which assumes a steady state for creatinine as recommended by the National Kidney Disease Education Program in conjunction with the National Institutes of Health and the National Kidney Foundation. Clinical conditions in which it may be necessary to measure GFR by using clearance methods include extremes of age and body size, severe malnutrition or obesity, diseases of skeletal muscle, paraplegia or quadriplegia, vegetarian diet, rapidly changing kidney function, and calculation of the dose of potentially toxic drugs that are excreted by the kidneys. 15 Updated Reference Range Procedures Date Code Description Status 12/28/2018 33143 Admin Of Inj (Therapeutic Phrophylactic Or Diagnostic Completed Subq Inj 11/28/2018 07005 Admin Of Inj (Therapeutic Phrophylactic Or Diagnostic Completed Subq Inj 10/28/2018 55785 Admin Of Inj (Therapeutic Phrophylactic Or Diagnostic Completed Subq Inj 09/27/2018 54535 Admin Of Inj (Therapeutic Phrophylactic Or Diagnostic Completed Subq Inj 05/08/2014 11074645 Colonoscopy Completed Medical Devices Description No Information Available Encounters Type Date Location Provider Dx Diagnosis Office Visit 01/04/2019 4:00p Cristóbal Michaud MD R49.0 Dysphonia E29.1 Testicular hypofunction E03.9 Hypothyroidism, unspecified Z00.00 Encntr for general adult medical exam w/o abnormal findings I48.0 Paroxysmal atrial fibrillation I10 Essential (primary) hypertension Z13.31 Encounter for screening for depression M77.10 Lateral epicondylitis, unspecified elbow Z13.29 Encounter for screening for oth suspected endocrine disorder I65.21 Occlusion and stenosis of RIGHT carotid artery Z68.28 Body mass index (BMI) 28.0-28.9, adult Office Visit 11/24/2018 2:15p Sammie Michaud NP Z68.28 Body mass index (BMI) 28.0-28.9, adult Z23 Encounter for immunization J37.0 Chronic laryngitis Office Visit 09/27/2018 3:15p Cristóbal Michaud MD E29.1 Testicular hypofunction Z68.27 Body mass index (BMI) 27.0-27.9, adult Z01.818 Encounter for other preprocedural examination Z13.6 Encounter for screening for cardiovascular disorders Z13.29 Encounter for screening for oth suspected endocrine disorder J44.1 Chronic obstructive pulmonary disease w (acute) exacerbation I48.0 Paroxysmal atrial fibrillation E03.9 Hypothyroidism, unspecified Z79.02 [facility]DC (current) use of antithrombotics/antiplatelets J45.40 Moderate persistent asthma, uncomplicated R49.0 Dysphonia F40.9 Phobic anxiety disorder, unspecified Office Visit 09/02/2018 10:40a Jonny Spain, I10 Essential ( primary) Cardiology hypertension I95.2 Hypotension due to drugs I11.9 Hypertensive heart disease without heart failure I48.91 Unspecified atrial fibrillation I63.9 Cerebral infarction, unspecified Z79.01 FDC (current) use of anticoagulants E78.00 Pure hypercholesterolemia, unspecified Z68.27 Body mass index (BMI) 27.0-27.9, adult Assessments Date Code Description Provider 02/01/2019 E29.1 Testicular hypofunction Cristóbal Chowdhury MD 02/01/2019 E29.1 Testicular hypofunction Nurse Schedule Loc 8 02/01/2019 E29.1 Testicular hypofunction [facility] 01/04/2019 Z13.228 Encounter for screening for other metabolic Cristóbal Chowdhury MD disorders 01/04/2019 R49.0 Dysphonia Cristóbal Chowdhury MD 01/04/2019 E29.1 Testicular hypofunction Cristóbal Chowdhury MD 01/04/2019 E03.9 Hypothyroidism, unspecified Cristóbal Chowdhury MD 01/04/2019 Z00.00 Encounter for general adult medical Cristóbal Chowdhury MD examination without abnormal findings 01/04/2019 I48.0 Paroxysmal atrial fibrillation Cristóbal Chowdhury MD 01/04/2019 Z13.228 Encounter for screening for other metabolic Nurse Schedule Loc 8 disorders 01/04/2019 I10 Essential (primary) hypertension Cristóbal Chowdhury MD 01/04/2019 Z13.31 Encounter for screening for depression Cristóbal Chowdhury MD 01/04/2019 I48.0 Paroxysmal atrial fibrillation Cristóbal Chowdhury MD 01/04/2019 M77.10 Lateral epicondylitis, unspecified elbow Cristóbal Chowdhury MD 01/04/2019 Z13.29 Encounter for screening for other suspected Cristóbal Chowdhury MD endocrine disorder 01/04/2019 I65.21 Occlusion and stenosis of RIGHT carotid Cristóbal Chowdhury MD artery 01/04/2019 I48.0 Paroxysmal atrial fibrillation Nurse Schedule Loc 8 01/04/2019 I10 Essential (primary) hypertension Cristóbal Chowdhury MD 01/04/2019 Z68.28 Body mass index (BMI) 28.0-28.9, adult Cristóbal Chowdhury MD 01/04/2019 I10 Essential (primary) hypertension Nurse Schedule Loc 8 01/04/2019 E03.9 Hypothyroidism, unspecified Cristóbal Chowdhury MD 01/04/2019 E03.9 Hypothyroidism, unspecified Nurse Schedule Loc 8 01/04/2019 E78.00 Pure hypercholesterolemia, unspecified Cristóbal Chowdhury MD 01/04/2019 E78.00 Pure hypercholesterolemia, unspecified Nurse Schedule Loc 8 01/04/2019 Z12.5 Encounter for screening for malignant Cristóbal Chowdhury MD neoplasm of prostate 01/04/2019 Z12.5 Encounter for screening for malignant Nurse Schedule Loc 8 neoplasm of prostate 01/04/2019 E29.1 Testicular hypofunction Cristóbal Chowdhury MD 01/04/2019 E29.1 Testicular hypofunction Nurse Schedule Loc 8 01/04/2019 Z13.228 Encounter for screening for other metabolic [facility] disorders 01/04/2019 I48.0 Paroxysmal atrial fibrillation [facility] 01/04/2019 I10 Essential (primary) hypertension [facility] 01/04/2019 E03.9 Hypothyroidism, unspecified [facility] 01/04/2019 E78.00 Pure hypercholesterolemia, unspecified [facility] 01/04/2019 Z12.5 Encounter for screening for malignant [facility] neoplasm of prostate 01/04/2019 E29.1 Testicular hypofunction [facility] 12/28/2018 E29.1 Testicular hypofunction Cristóbal Chowdhury MD 12/28/2018 E29.1 Testicular hypofunction Nurse Schedule Loc 8 11/28/2018 E29.1 Testicular hypofunction Cristóbal Chowdhury MD 11/28/2018 E29.1 Testicular hypofunction Nurse Schedule Loc 8 11/24/2018 Z68.28 Body mass index (BMI) 28.0-28.9, adult Sammie Chowdhury, RACHEAL 11/24/2018 Z23 Encounter for immunization Sammie Chowdhury NP 11/24/2018 J37.0 Chronic laryngitis Sammie Chowdhury NP 10/28/2018 E29.1 Testicular hypofunction Cristóbal Chowdhury MD 10/28/2018 E29.1 Testicular hypofunction Nurse Schedule Loc 8 09/27/2018 E29.1 Testicular hypofunction Cristóbal Chowdhury MD 09/27/2018 Z68.27 Body mass index (BMI) 27.0-27.9, adult Cristóbal Chowdhury MD 09/27/2018 Z01.818 Encounter for other preprocedural examination Cristóbal Chowdhury MD 09/27/2018 E03.9 Hypothyroidism, unspecified [facility] 09/27/2018 Z13.6 Encounter for screening for cardiovascular Cristóbal Chowdhury MD disorders 09/27/2018 Z13.29 Encounter for screening for oth suspected Cristóbal Chowdhury MD endocrine disorder 09/27/2018 J44.1 Chronic obstructive pulmonary disease with Cristóbal Chowdhury MD (acute) exacerbat 09/27/2018 I48.0 Paroxysmal atrial fibrillation Cristóbal Chowdhury MD 09/27/2018 E03.9 Hypothyroidism, unspecified Cristóbal Chowdhury MD 09/27/2018 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 Chowdhury MD antithrombotics/antiplatelets 09/27/2018 J45.40 Moderate persistent asthma, uncomplicated Cristóbal Chowdhury MD 09/27/2018 R49.0 Dysphonia Cristóbal Chowdhury MD 09/27/2018 F40.9 Phobic anxiety disorder, unspecified Cristóbal Chowdhury MD 09/27/2018 Z01.818 Encounter for other preprocedural examination [facility] 09/27/2018 Z13.6 Encounter for screening for cardiovascular [facility] disorders 09/27/2018 Z13.29 Encounter for screening for oth suspected [facility] endocrine disorder 09/02/2018 I10 Essential (primary) hypertension Jonny Cabral MD 09/02/2018 I95.2 Hypotension due to drugs Jonny Cabral MD 09/02/2018 I11.9 Hypertensive heart disease without heart Jonny Cabral MD failure 09/02/2018 I48.91 Unspecified atrial fibrillation Jonny Cabral MD 09/02/2018 I63.9 Cerebral infarction, unspecified Jonny Cabral MD 09/02/2018 Z79.01 [facility] (current) use of anticoagulants Jonny Cabral MD 09/02/2018 E78.00 Pure hypercholesterolemia, unspecified Jonny Cabral MD 09/02/2018 Z68.27 Body mass index (BMI) 27.0-27.9, adult Jonny Cabral MD Plan of Treatment Future Appointment(s):03/03/2019 10:00 am - Nurse Schedule Loc 8 at [email or web address] - Cristóbal Chowdhury MDR49.0 DysphoniaNew Medication:Prednisone 5 mg - 1 PO qdE29.1 Testicular hypofunctionFollow up:2 WEEKS FOR REPEAT TESTOSTERONE LEVEL.E03.9 Hypothyroidism, unspecifiedFollow up:Followup:.Z00.00 Encounter for general adult medical examination without abnormal toqylhqhU74.0 Paroxysmal atrial fibrillationFollow up:Followup:.I10 Essential (primary) hypertensionComments:HYPERTENSION CONTROLLED WITH MEDICATION CONTINUE PRESENT DOSE AND CONTINUE TO MONITOR OUTSIDE OF THEOFFICE.Follow up:Followup:.Z13.31 Encounter for screening for jlfapiahmmT51.10 Lateral epicondylitis, unspecified elbowComments:RECOMMEND TENNIS ELBOW BRACE DIRECTED, LOCAL HEAT AND AVOID HEAVY GRIPPING OR CARRYING WITH THE AFFECTED HAND. NSAID DIRECTED WITH FOOD. GIVEN PRECAUTIONS REGARDING USE OF NSAID. TOLD TO CALL BACK FOR AND EPIGASTRIC PAIN/DISCOMFORT, RECTAL BLEEDING OR BLACK OR TARRY LOOKING STOOLSFollow up: Followup:. NEUROPATHIC PAIN TREATMENT WITH FBAASSUC63.29 Encounter for screening for other suspected endocrine kzvwtbvuV65.21 Occlusion and stenosis of RIGHT carotid arteryComments:FOLLOW UP DOPPLERS PER PREVIOUS PLANFollow up :Followup:.Z68.28 Body mass index (BMI) 28.0-28.9, adult Functional Status Description No Information Available Mental Status Description No Information Available Referrals Description No Information Available
[2019-03-18 07:28] VITALS: BP 101/67
[2019-03-18 07:56] LABS: Influenza A Molecular NEGATIVE (Negative); Influenza B Molecular NEGATIVE (Negative)
--- NOTE | 2019-03-18 07:59 | UC ---
HPI Febrile Illness - HPI Summary HPI Summary: 54-year-old white male presents with diffuse body aches associated with fever or chills with increasing chest congestion and brown sputum 1 week. Patient states he has history of bronchitis and pneumonia in the past, bronchitis 2 in the last year. Patient states he is a nonsmoker. - History of Current Complaint Chief Complaint: UCRespiratory Time Seen by Provider: 03/18/19 07:34 Hx Obtained From: Patient Timing: Constant Initial Severity: Moderate Pain Intensity: 6 - Allergy/Home Medications Allergies/Adverse Reactions: Allergies Allergy/AdvReac Type Severity Reaction Status Date / Time No Known Allergies Allergy Verified 03/18/19 07:15 Home Medications: Home Medications Pantoprazole TAB * [Protonix TAB*] 40 mg PO DAILY 03/18/19 [History Confirmed ] PMH/Surg Hx/FS Hx/Imm Hx Previously Healthy: Yes - Surgical History Surgical History: Yes Surgery Procedure, Year, and Place: TONSILS-2002. LASER VOCAL CORD 2007 & 2019. cervical fusion, 2018. cardiac ablation 2017. right leg venous reflux 2017. VOCAL FOLD SURGERY 2018 [facility]. Hx pneumonia, hospitalized - Family History Known Family History: Positive: None - Social History Alcohol Use: Occasionally Alcohol Amount: <10 DRINK/WEEK -ALCOHOL. NO BEER Substance Use Type: None Smoking Status (MU): Never Smoked Tobacco Have You Smoked in the Last Year: No Review of Systems All Other Systems Reviewed And Are Negative: Yes Constitutional: Positive: Fever, Chills Skin: Positive: Negative Eyes: Positive: Negative Respiratory: Positive: Shortness Of Breath, Cough Cardiovascular: Positive: Negative Gastrointestinal: Positive: Negative Genitourinary: Positive: Negative Physical Exam Triage Information Reviewed: Yes Appearance: No Pain Distress Vital Signs: Initial Vital Signs Temp 38.1 C 03/18/19 07:20 Pulse 107 03/18/19 07:20 Resp 20 03/18/19 07:20 BP 101/67 03/18/19 07:20 Pulse Ox 95 03/18/19 07:20 Vital Signs Reviewed: Yes Eyes: Positive: Conjunctiva Clear ENT: Positive: Normal ENT inspection, Pharynx normal Respiratory: Positive: No respiratory distress, Rhonchi Cardiovascular: Positive: RRR Abdomen Description: Positive: Nontender Musculoskeletal: Positive: ROM Intact, No Edema Neurological: Positive: Alert Psychological Exam: Normal Skin Exam: Normal Course/Dx - Diagnoses Provider Diagnosis: Bronchitis Discharge ED - Sign-Out/Discharge Documenting (check all that apply): Patient Departure All imaging exams completed and their final reports reviewed: No - Discharge Plan Condition: Stable Disposition: HOME Prescriptions: Azithromycin TAB* [Zithromax TAB (Z-NEELAM) 250 mg #6 tabs] 2 tab PO .TODAY, THEN 1 DAILY #1 neelam Patient Education Materials: Acute Bronchitis (ED) Referrals: Cristóbal Chowdhury MD [Primary Care Provider] - - Billing Disposition and Condition Condition: STABLE Disposition: Home
== END 2019-03-18 08:19 | disposition home or self-care (01) ==
LOC: UCCORT 07:04
DX: J40 Bronchitis, not specified as acute or chronic (principal)
CPT/HCPCS: 87651; 99212; G0463